=== PATIENT | female | born 1950 | race Caucasian/White ===

== ENCOUNTER 2020-02-03 11:00 | Outpatient (RCR) | payer MEDICAID, SELFPAY | END 2020-02-03 23:59 | disposition home or self-care (01) | LOC: ANHAUDIO 11:00 | DX: Z46.1 Encounter for fitting and adjustment of hearing aid (principal) | CPT/HCPCS: 99199 ==

== ENCOUNTER 2020-12-10 13:04 | Outpatient (RCR) | payer MEDICAID, SELFPAY | END 2020-12-10 23:59 | disposition home or self-care (01) | LOC: ANHAUDIO 13:04 | DX: Z46.1 Encounter for fitting and adjustment of hearing aid (principal) | CPT/HCPCS: 92593 ==